=== PATIENT | male | born 1965 | race Caucasian/White ===

== ENCOUNTER 2023-01-09 09:49 | Emergency (ER) | payer OTHER ==
[~2023-01-09] VITALS: Ht 182.9 cm; Wt 100.7 kg
[2023-01-09] MEDS ORDERED: OZEMPIC1 MG/0.71 SUB-Q (09:55)
[2023-01-09 10:05] LABS: BASOPHILS 0.1 % (0-2); EOSINOPHILS 0.2 % (0-6); HEMATOCRIT 45.5 % (35.0-50.0); HEMOGLOBIN 15.4 g/dL (12.0-18.0); LYMPHOCYTES 7.2 % (24-44); MCH 30.3 (27-36); MCHC 33.9 g/dl (30-36); MCV 89.5 fl (81-99); MONOCYTES 7.7 % (0-12); NEUTROPHILS 84.8 % (39-80); PLATELET COUNT 268 K/uL (140-440); RBC 5.09 M/ul (4.3-5.7); RDW 14.2 (10.5-15.0)
[2023-01-09 10:20] LABS: ALBUMIN/GLOBULIN RATIO 1.21 (1.1-2.4); ANION GAP 17.7 (7-21); BILIRUBIN, TOTAL 0.9 ng/dL (0.2-1.0); CALCIUM 9.8 mg/dL (8.5-10.1); CREATININE, SERUM 1.65 mg/dL (0.70-1.30); POTASSIUM 3.7 mmol/L (3.5-5.1); PROTEIN, TOTAL 7.3 g/dL (6.4-8.2)
[2023-01-09] MEDS ORDERED: AMOX TR-K CLV1 EAC1 PO (12:02)
[2023-01-09 12:22] VITALS: BP 139/75
== END 2023-01-09 12:24 | disposition home or self-care (01) ==
LOC: ED 09:49
PROVIDERS: Student in an Organized Health Care Education/Training Program
DX: K52.9 Noninfective gastroenteritis and colitis, unspecified (principal); E11.9 Type 2 diabetes mellitus without complications; Z79.899 Other long term (current) drug therapy
CPT/HCPCS: 36415; 74177; 80053; 83605; 83690; 85025; 96375; 99284-25; J2270; J2405